=== PATIENT | female | born 1970 | race Caucasian/White ===

== ENCOUNTER → 2024-09-14 | Outpatient (CLI) | payer MEDICAID, SELFPAY ==
--- NOTE | 2024-09-14 09:55 | XR_ITS ---
Examination: PA lateral chest 2 views TECHNIQUE: Upright PA lateral chest 2 views Exam date and time: September 14, 2024 1013 hours INDICATIONS: Coughing congestion beginning 2 days ago. FINDINGS: Bibasilar pneumonia, significant left base Normal heart size The osseous structures are intact IMPRESSION: Bibasilar pneumonia
== END | disposition home or self-care (01) ==
LOC: CDIM 09:42
PROVIDERS: PCP Nurse Practitioner Family; Referring Provider Nurse Practitioner Family; Visit Provider Nurse Practitioner Family
DX: J18.9 Pneumonia, unspecified organism (principal)
CPT/HCPCS: 71046

== ENCOUNTER 2025-03-08 15:30 | Outpatient (RCR) | payer MEDICAID, SELFPAY ==
--- NOTE | 2025-03-01 08:44 | PTNOTE_ITS ---
PT OP Initial Eval Patient Information Outpatient Physical Therapy Treatment Date: 03/01/25 Visit Reasons: ceralal palsy Medical Diagnosis: M21.6 Treatment Dx #1: gait impairment Treatment Dx #2: B hip weakness Start of Care: 03/01/25 Date of Onset: 1 yr ago Smoking Status Smoking Status: Never smoker Initial Assessment Subjective: Pt is 54 yr old female with cerebral palsy here with her family law legal assistant for falls, instability and gait impairments. Caregiver is providing the Hx today as pt is almost non-verbal. Pt falls frequently and the R ankle turns inward. The last fa ll was about 1 month ago. [facility] her caregiver has her walk about 50'. PMH: CP, R equino varus, developmental delay Caregiver goal: improve stability with walking Objective: Gait: ataxic, R equino varus, B genu valgus, B knee flexion B hip abduction: unable to actively abduct Bridge: can initiate but not lift hips off the table in supine R ankle PROM: DF: to neutral and then the foot inverts Assessment: Pt ambulates with ataxic gait with hip and knee weakness along with R ankle instability with tight Achilles and limited dorsiflexion of the ankle. She is unable to actively abduct the hip and is a fall risk. Pt has poor rehab potential to meet goals due to PMH but we will try a couple visits to see if she can strengthen the hips. She may benefit from a R ankle brace to limit inversion but gastrocs are tight and she has limited DF so a brace may limit gait. Short Term and [facility] Goals 1. Ind with HEP 2. Improve strength of B hip abduction to 3-/5 3. Ambulate with 50% less R ankle inversion Treatment Plan 1. Manual therapy ? 2. Therex ? 3. Modalities as indicated, moist heat, ice, estim Frequency and Duration: 1-2x a week for 3 trial visits. If progressing continue to 16 Certification Dates: 03/01/25 to 05/30/25 Procedure Charges OP PT Eval Mod Complex 30 minutes: Yes
--- NOTE | 2025-03-08 16:33 | PT.ODS1RPT ---
PT OP Progress/Discharge Note Date of Service: 03/08/25 Progress Note/DC Note Progress Note/Discharge Note: DC Note Patient Information Visit Reasons: ceralal palsy Service Continue Service or Discharge: Discharge Discharge Date: 03/08/25 Status Subjective: Pt is mostly non-verbal and can respond yeah to questions or no Objective: Objective findings are the same as time of evaluation Assessment: Pt attended the evaluation and 1 Rx session. Pt needs a neuro therapist to benefit from skilled therapy. And a R ankle brace may benefit her to limit ankle inversion even though she has very limited ankle DF ROM on the R side due to Achilles and gastroc tightness. 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 This causes the valgus knees and lateral sway with gait. She will not likely make progress with gait goals without a R ankle brace and without any hip abduction strength. Plan: D/C Procedure Charges Therapeutic Exercise 30 minutes: Yes
== END 2025-03-12 23:59 | disposition home or self-care (01) ==
LOC: CPTX 15:30
PROVIDERS: PCP Student in an Organized Health Care Education/Training Program; Referring Provider Student in an Organized Health Care Education/Training Program; Visit Provider Student in an Organized Health Care Education/Training Program
DX: R26.0 Ataxic gait (principal); R53.1 Weakness; R29.6 Repeated falls; G80.9 Cerebral palsy, unspecified; M25.371 Other instability, right ankle
CPT/HCPCS: 97110; 97162